=== PATIENT | male | born 1950 | race Caucasian/White ===

== ENCOUNTER 2024-01-13 10:09 | Emergency (ER) | payer SELFPAY ==
[2024-01-13 10:13] VITALS: BP 130/85
[2024-01-13 10:21] VITALS: BMI 35.0
--- NOTE | 2024-01-13 10:25 | ED.GENMED ---
History of Present Illness
General
Chief Complaint: Fall
Source: patient
Exam Limitations: none
Time Seen by Provider: 01/13/24 10:16
Nursing documentation reviewed up to this point in time: agreed with
History of Present Illness
History of Present Illness:
PT IS A 73 Y/O M with h/o HTN, hld
here with left upper arm laceration after falling about 6 feet when he was standing on a ladder working on a ceiling
pt works for himself
hesays he slipped and fell and cut his left elbow region on somethin gin the ceiling
he landed onto his buttocks/back and knows he did not strike his head
he had a little right ankle pain initially but is able to walk on it and it is better now
he denies headache, neck pain, back pain, chest pain, abdominal pain, flank pain, hip pain
he has not had a tetanus shot in > 5 years
full rom of the elbow, no numbness/tingling/weakness
Past History
Past History
ED Past Medical History: HTN and Hypercholesterolemia
Social History
Tobacco: Non-smoker
Alcohol: Occasional
Drug: None
Personal:
Living: with family
Employment: Employed
Review of Systems
Review of Systems
Allergies reviewed?: Yes
All Other Systems: Not applicable
Phy Exam
Physical Exam
Physical Exam:
GENERAL: Alert , in no apparent distress
HEAD: NCAT
NECK: no midline tenderness, active ROM intact, no paraspinal muscle tenderness;
EYE: pupils equal and reactive, EOMs intact.
ENT: o/p clr, mmm. no hemotympanum
CARDIAC: Regular rate and rhythm, no edema
LUNGS: Clear breath sounds bilaterally, no acute respiratory distress, no wheezes/rales/rhonchi
back: nontender, no bruising, full ROM
ABDOMEN: Soft, without focal tenderness, no r/g, no cvat
NEUROLOGICAL: Alert and oriented, no focal neuro deficits, CN intact, 5/5 strength, sensation intact
SKIN: Warm and dry, large linear laceration approx 10 cm left upper arm
MUSCULOSKELETAL: full ROM of ankle nontender no swelling
full ROM of left elbow nontender bony
no other bony tenderness, able to flex both hips
no pelvis tenderness;
PSYCH: Normal and appropriate interaction.
Course
Orders/Labs/Results
Orders:
Orders
01/13/24 10:16
Tetanus/Diphth/Acelpertussis [Adacel] 0.5 ml IM .ONCE ONE
Vital Signs
Initial and Last Documented VS:
Initial Vital Signs
Temp Pulse Resp BP Pulse Ox
97.9 F 76 16 130/85 96
01/13/24 10:13 01/13/24 10:13 01/13/24 10:13 01/13/24 10:13 01/13/24 10:13
Last Documented Vital Signs
Temp Pulse Resp BP Pulse Ox
97.9 F 76 16 130/85 96
01/13/24 10:13 01/13/24 10:13 01/13/24 10:13 01/13/24 10:13 01/13/24 10:13
Procedures
Laceration Closure
Left Lateral Arm:
Status of Wound: clean
Size of Wound in cm: 12
Description of Wound Edges: sharp and flap-well vascularized
Preparation: cleaned with saline
Anesthesia: 1% Lidocaine with epi
Wound exploration: extensive cleaning of contaminated wound, explored to base- no FB and no tendon involvement
Type of Closure: layered closure
Skin Closure Material: 4-0 nylon and 4-0 vicryl
Number of sutures: 16
MDM/Problems Addressed
Differential Diagnosis Includes:
laceration
sprain
MDM/Problems Addressed:
73-year-old male with history of hypertension not currently on medication presents after a fall down off of a ladder approximately 6 feet when he was working, patient works for himself. He was fixing a ceiling. Patient says he did not hit his
head. He landed on his back and buttocks and may have twisted his ankle but was able to get up and walk. He has a laceration to his left humerus region probably from where his arm was within the ceiling. The linear laceration but he has full
range of motion of his left elbow. He had been having some left shoulder discomfort last week but has full painless range of motion of that. There is no signs of head and neck trauma. There is no tenderness to his spine. There is no bruising to
his back. He is not anticoagulated. He is able to move both hips well. His ankle was nontender and not swollen. The left elbow has no bony tenderness. The laceration is quite deep and through the first layer of fascia visualizing the triceps
tendon on the posterior margin however there is no involvement of the tendon. This was requiring a layered closure and reinforced sutures with a vertical mattress. Wound care instructions given, sutures to be removed in 10 days. Discussed imaging
of the ankle which patient declined. He was able to walk. DC home
*Critical Care Note
Total Time (30-74mins, 75-104mins- exclusive of procedures): Not Applicable
ED Attending Note
-
Portions of this chart may have been created with voice recognition software.� Occasional wrong word or��sound alike� substitutions may have occurred due to the inherent limitations of voice recognition software.
Discharge Plan
Departure
Patient Disposition: Home (Routine Discharge)
Date of Disposition: 01/13/24
Time of Disposition: 11:31
Patient with high blood pressure during this ER visit?: No
Condition: Fair
Covid-19: Not Applicable
Discharge Problem:
Arm laceration, Fall
Instructions: Laceration Repair With Stitches (DC)
Referrals:
UNKNOWN - PT DOES,NOT KNOW [Family Provider] -
Activity Restrictions/Additional Instructions:
KEEP THE WOUND CLEAN AND DRY FOR 24 HOURS
AFTER THAT YOU CAN GET IT WET IN THE BATH/SHOWER ONCE A DAY AND MAKE SURE IT IS CLEAN AND THERE IS NO DRIED BLOOD ON THE STITCHES
APPLY NEOSPORIN AND A BANDAID
THE STITCHES NEED TO BE REMOVED IN ABOUT 10 DAYS, SEE YOUR DOCTOR FOR THIS.
THE LAST DAY BEFORE STITCHES OUT, NO OINTMENT, LEAVE OPEN TO AIR
WATCH FOR SIGNS OF INFECTION AND RETURN NEEDED FOR PAIN, SWELLING, REDNESS, DRAINAGE, BLEEDING.
MOTRIN NEEDED FOR PAIN.
Interventions
Interventions:
*Risk Screen - Suicide Last Done: 01/13/24 10:13
*General Assessment Last Done: 01/13/24 10:13
*Neglect/Abuse Screening Last Done: 01/13/24 10:13
ED- Fall Risk Assessment Last Done: 01/13/24 10:13
*ED COVID-19 Vaccine History Last Done: 01/13/24 10:13
ED-Musculoskeletal Assessment Last Done: 01/13/24 10:22
ED- Neurological Assessment Last Done: 01/13/24 10:22
ED-Skin Assessment Last Done: 01/13/24 10:22
Discharge Date and Time
Print Language: KYRGYZ
--- NOTE | 2024-01-13 10:50 | EDRN ---
[facility] G[facility] in room w/ pt.
[2024-01-13] MEDS: ADACEL 0.5 ML IM (11:40)
[2024-01-13 11:45] VITALS: BP 165/95
[2024-01-13 13:01] VITALS: BP 162/98
--- NOTE | 2024-01-13 13:02 | EDRN ---
Pt limping when ambulating, favoring R ankle, states pain in in outer malleolus area.
--- NOTE | 2024-01-13 13:17 | EDRN ---
Rubin wrap applied to R ankle prior to discharge. Unable to get an air cast only a left one in ED. Pt was advised to wear his boots when up ambulating for ankle support.
== END 2024-01-13 13:19 | disposition home or self-care (01) ==
LOC: EMR 10:09
PROVIDERS: EMERGENCY PHYSICIAN Student in an Organized Health Care Education/Training Program
DX: S41.122A Laceration with foreign body of left upper arm, initial encounter (principal); M25.571 Pain in right ankle and joints of right foot; W11.XXXA Fall on and from ladder, initial encounter; Y93.89 Activity, other specified; Y92.89 Other specified places as the place of occurrence of the external cause; Y99.0 Civilian activity done for income or pay; Z23 Encounter for immunization; I10 Essential (primary) hypertension; E78.00 Pure hypercholesterolemia, unspecified
CPT/HCPCS: 12034; 99283; 90471; 73610; 90715